=== PATIENT | female | born 1955 | race Caucasian/White ===

== ENCOUNTER → 2016-11-14 | Outpatient (CLI) | payer BC ==
--- NOTE | 2016-11-14 11:26 | REP ---
RENAL ULTRASOUND WITH DUPLEX DOPPLER RENAL ARTERY EVALUATION: Real-time sonographic evaluation of the kidneys performed and demonstrates both kidneys to be normal in size and echotexture, right kidney measuring 11.4 x 6.7 x 4.3 cm and the left kidney 11.5 x 5.3 x 5.5 cm. There is no hydronephrosis bilaterally. An exophytic cyst in the upper pole of the left kidney measures 4.2 x 3.0 x 3.6 cm. The urinary bladder is moderately distended with no mass or calculus. A left ureteral jet is seen in the urinary bladder with Doppler color evaluation while a right ureteral jet is not visualized. Real-time sonographic evaluation and duplex Doppler interrogation of the renal arteries is performed bilaterally. Peak systolic velocity of the abdominal aorta at the level of the renal arteries is 76.9 cm/s. Peak systolic velocity at the origin of the main right renal artery is 109.4 cm/s. Renal or aortic ratio is 1.4. Resistive indices are measured in the upper, middle and lower thirds of the right kidney and range between 0.6 and 0.7. Acceleration times range between 0.03 and 0.04. Peak systolic velocity in the mid left main renal artery is 186.1 cm/s. Renal to aortic ratio is 2.4. Resistive indices left kidney range between 0.6 and 0.7. Acceleration times range between 0.03 and 0.04. IMPRESSION: No hydronephrosis. Left renal cyst. No evidence of significant stenosis of the renal arteries bilaterally. There is a history of left main renal artery stent. The stent is not visualized as portions of the left renal artery are obscured by bowel gas. Velocity in the main left renal artery is greater than the right side and there is turbulence of flow in the left main renal artery. This is likely related to the left renal stent. Signed by Chris Karimi MD 11/14/2016 02:23 P
== END ==
LOC: M RAD 07:45
PROVIDERS: ATTEND Internal Medicine Cardiovascular Disease
DX: I70.1 Atherosclerosis of renal artery (principal); N28.1 Cyst of kidney, acquired

== ENCOUNTER → 2019-12-08 | Outpatient (CLI) | payer BC, MEDICARE ==
--- NOTE | 2019-12-08 11:38 | REP ---
INDICATION: PERSONAL H/O NICOTINE DEPENDANCE COMPARISON: None. TECHNIQUE: Helical scanning. 3 mm lung windows setting images are provided. 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 Nipple silhouettes project at mid lung field level bilaterally. On axial CT images there is minimal linear fibrosis anteriorly in the left upper lobe and lingula. Hiatal hernia is confirmed. There is a granulomatous calcification in the posterior lung gutter on the left. Mild linear fibrosis is seen in the right middle lobe and right lower lobe. There is a 4 mm partially solid nodule in the left upper lobe on page 27 of 89, series 201 of today's study. Mild vascular calcification is noted. IMPRESSION: Lung rads category 2 findings. 4 mm nodule left upper lobe. Repeat CT study recommended in 1 year. There is a large hiatal hernia noted incidentally. <Electronically signed by Cheo Reyes > 12/08/19 [id number]
== END ==
LOC: M RAD 10:16
PROVIDERS: ATTEND Nurse Practitioner Family
DX: Z12.2 Encounter for screening for malignant neoplasm of respiratory organs (principal); Z87.891 Personal history of nicotine dependence; R91.1 Solitary pulmonary nodule; K44.9 Diaphragmatic hernia without obstruction or gangrene

== ENCOUNTER → 2020-12-28 | Outpatient (CLI) | payer MEDICARE ==
--- NOTE | 2020-12-28 11:15 | REP ---
INDICATION: SMOKER. COMPARISON: 12/08/2019 TECHNIQUE: Standard low-dose lung CT screening protocol utilized FINDINGS: [employer] image again shows a prominent hiatal hernia. On image 39, there is again seen a 4 mm semi solid left upper lobe nodule peripherally, unchanged. Some minimal fibrotic changes are seen in the lingula and left upper lobe. Medial basal segment of the left lower lobe shows a calcified granuloma, unchanged. Some curvilinear fibrosis in the medial segment of the right middle lobe at the anterior right lung base is stable. Calcifications of the aortic arch noted. The underlying COPD and emphysematous changes are stable. There is no new or acute finding. Some aortic calcifications or aneurysm noted and degenerative changes at endplates in the spine. IMPRESSION: 1. Lung rads category 2 benign findings, nodule with the benign appearance and behavior. No new or suspicious findings. For patients with high risk of malignancy, annual low-dose CT lung screening recommended. Patients with this category of examination have less than 1% chance of malignancy at the time of the examination. <Electronically signed by Segun Lopez > 12/28/20 [id number]
== END ==
LOC: M RAD 10:16
PROVIDERS: ATTEND Nurse Practitioner Family
DX: Z87.891 Personal history of nicotine dependence (principal)

== ENCOUNTER → 2022-01-13 | Outpatient (CLI) | payer MEDICARE | LOC: M RAD 08:32 | PROVIDERS: ATTEND Nurse Practitioner Family | DX: Z12.2 Encounter for screening for malignant neoplasm of respiratory organs (principal); Z87.891 Personal history of nicotine dependence ==

== ENCOUNTER → 2022-04-30 | Outpatient (CLI) | payer MEDICARE ==
[~2022-04-30] MED LIST: ATOR40TA75 PO; BUDE10.7 IH; COZA50TA PO; DULO1CAP6 PO; ECOT81TA5 PO; FAMO20TA5 PO; HYDR12.55 PO; IPRA0.00 INH; IRON65TA2 PO; LIPI20TA PO; LOSA50TA28 PO; METO1TAB32 PO; OMEP40CA5 PO; PROA1AER2 INH; SUCR1TAB56 PO
== END ==
LOC: M LABSMTC 10:03
PROVIDERS: ATTEND Anesthesiology
DX: Z01.818 Encounter for other preprocedural examination (principal)

== ENCOUNTER 2022-05-05 10:38 | Day surgery (SDC) | payer MEDICARE ==
[~2022-05-05] VITALS: Ht 162.6 cm; Wt 73.8 kg
[~2022-05-05 10:38] MED LIST changes: +LIDOCAINE 2% 100MG/5ML SDV (FOR ANES.) As Ordered ONE; +NS 1,000 ML IV ONE; +fentaNYL 100 MCG/2 ML INJECTION As Ordered ONE; +propofoL 200 MG/20 ML VIAL As Ordered ONE
[2022-05-05] MEDS ORDERED: ePHEDrine SULFATE 25 MG/5 ML(5MG/ML) SYRINGE As Ordered ONE (12:20)
[2022-05-05 13:00] VITALS: BP 133/65
== END 2022-05-05 13:09 | disposition home or self-care (01) ==
LOC: M OPP 10:38
PROVIDERS: ATTEND Internal Medicine Gastroenterology
DX: D12.6 Benign neoplasm of colon, unspecified (principal); K57.30 Diverticulosis of large intestine without perforation or abscess without bleeding; K64.4 Residual hemorrhoidal skin tags; K64.8 Other hemorrhoids; D50.9 Iron deficiency anemia, unspecified; D62 Acute posthemorrhagic anemia; K44.9 Diaphragmatic hernia without obstruction or gangrene; K21.00 Gastro-esophageal reflux disease with esophagitis, without bleeding; K25.4 Chronic or unspecified gastric ulcer with hemorrhage; K29.70 Gastritis, unspecified, without bleeding; Z87.891 Personal history of nicotine dependence; J44.9 Chronic obstructive pulmonary disease, unspecified; I10 Essential (primary) hypertension; E78.00 Pure hypercholesterolemia, unspecified; Z79.02 Long term (current) use of antithrombotics/antiplatelets; Z79.51 Long term (current) use of inhaled steroids; Z79.82 Long term (current) use of aspirin
CPT/HCPCS: 43239; 43255; 45380; 88305; J3010

== ENCOUNTER 2022-09-02 11:43 | Day surgery (SDC) | payer MEDICARE ==
[~2022-09-02] VITALS: Ht 162.6 cm; Wt 78.5 kg
[~2022-09-02 11:43] MED LIST changes: -COZA50TA PO; +DULO1CAP5 PO; -LIDOCAINE 2% 100MG/5ML SDV (FOR ANES.) As Ordered ONE; +LOSA-528 PO; -fentaNYL 100 MCG/2 ML INJECTION As Ordered ONE; -propofoL 200 MG/20 ML VIAL As Ordered ONE
[2022-09-02] MEDS ORDERED: GLYCOPYRROLATE INJ 0.2 MG/ML 2 ML VIAL As Ordered ONE (13:55)
[2022-09-02] MEDS ORDERED: propofoL 200 MG/20 ML VIAL As Ordered ONE (13:55)
[2022-09-02] MEDS ORDERED: LIDOCAINE 2% 100MG/5ML SDV (FOR ANES.) As Ordered ONE (13:55)
[2022-09-02 14:05] VITALS: TEMP 97
[2022-09-02 14:20] VITALS: BP 158/88; O2SAT 95
== END 2022-09-02 14:30 | disposition home or self-care (01) ==
LOC: M OPP 11:43
PROVIDERS: ATTEND Internal Medicine Gastroenterology
DX: K44.9 Diaphragmatic hernia without obstruction or gangrene (principal); K22.70 Barrett's esophagus without dysplasia; K22.89 Other specified disease of esophagus; K25.9 Gastric ulcer, unspecified as acute or chronic, without hemorrhage or perforation; T18.2XXA Foreign body in stomach, initial encounter; Z87.891 Personal history of nicotine dependence; Z79.02 Long term (current) use of antithrombotics/antiplatelets; Z79.51 Long term (current) use of inhaled steroids; Z79.82 Long term (current) use of aspirin; Z79.899 Other long term (current) drug therapy; Z88.1 Allergy status to other antibiotic agents; Z88.5 Allergy status to narcotic agent

== ENCOUNTER → 2022-12-25 | Outpatient (CLI) | payer MEDICARE ==
[~2022-12-25] MED LIST changes: -NS 1,000 ML IV ONE
== END ==
LOC: M CARPUL 07:35
PROVIDERS: ATTEND Nurse Practitioner Family
DX: J44.9 Chronic obstructive pulmonary disease, unspecified (principal)

== ENCOUNTER → 2024-02-05 | Outpatient (CLI) | payer MEDICARE | LOC: M RAD 09:33 | PROVIDERS: ATTEND Nurse Practitioner Family | DX: Z12.2 Encounter for screening for malignant neoplasm of respiratory organs (principal); Z87.891 Personal history of nicotine dependence ==

== ENCOUNTER 2025-01-11 06:48 | Day surgery (SDC) | payer MEDICARE ==
[~2025-01-11] VITALS: Ht 160 cm; Wt 74.1 kg
[2025-01-11] MEDS ORDERED: dexAMETHasone 4 MG/ML 1 ML VIAL As Ordered ONE (06:57)
[2025-01-11] MEDS ORDERED: ONDANSETRON 4MG/2ML VIAL As Ordered ONE (06:57)
[2025-01-11] MEDS ORDERED: ACETAMINOPHEN 1000MG/100ML IV BAG As Ordered ONE (06:57)
[2025-01-11] MEDS ORDERED: KETOROLAC 30 MG/ML 1 ML VIAL As Ordered ONE (06:58)
[2025-01-11] MEDS ORDERED: LIDOCAINE 2% 100 MG/5 ML SDV (FOR ANES.) As Ordered ONE (06:58)
[2025-01-11] MEDS ORDERED: MIDAZOLAM INJ 2 MG/2 ML VIAL As Ordered ONE (06:58)
[2025-01-11] MEDS: LR 1,000 ML IV SCH (07:30)
[2025-01-11] MEDS: ceFAZolin SOD 2 GM IV ONCE IV ONE (08:30)
[2025-01-11] MEDS ORDERED: HYDROMORPHONE HCL 0.5 MG/0.5 ML SYRINGE IV PRN (09:25)
[2025-01-11] MEDS ORDERED: LR 1,000 ML IV SCH (09:25)
[2025-01-11] MEDS ORDERED: ONDANSETRON 4MG/2ML VIAL IV PRN (09:25)
[2025-01-11] MEDS ORDERED: PERC5TAB12 PO (09:28)
[2025-01-11 10:50] VITALS: BP 130/73; TEMP 97.2; O2SAT 98
== END 2025-01-11 10:53 | disposition home or self-care (01) ==
LOC: M SDC 06:48
PROVIDERS: ATTEND Orthopaedic Surgery Hand Surgery
DX: M72.0 Palmar fascial fibromatosis [Dupuytren] (principal); I10 Essential (primary) hypertension; E78.5 Hyperlipidemia, unspecified; K44.9 Diaphragmatic hernia without obstruction or gangrene; K21.9 Gastro-esophageal reflux disease without esophagitis; J44.9 Chronic obstructive pulmonary disease, unspecified; Z87.891 Personal history of nicotine dependence; Z79.899 Other long term (current) drug therapy; Z79.51 Long term (current) use of inhaled steroids; Z88.5 Allergy status to narcotic agent; Z88.8 Allergy status to other drugs, medicaments and biological substances
CPT/HCPCS: 26123; 88304; J0131; J0665; J0688; J1100; J1885; J2250; J2405; J3010